=== PATIENT | male | born 1945 | race Caucasian/White ===

== ENCOUNTER 2024-04-27 12:02 | Emergency (ER) | payer MEDICARE, OTHER ==
[2024-04-27] MEDS ORDERED: AMLO1TAB24 (12:05)
[2024-04-27] MEDS ORDERED: ATOR80TA59 (12:05)
[2024-04-27 12:07] VITALS: BP 141/84; TEMP 97.9; O2SAT 98
[2024-04-27] MEDS ORDERED: RABIES IMMUNE GLOBULIN 1500 INTERNATIONAL UNIT/5ML VIAL IM.IMMUN ONE (13:55)
[2024-04-27] MEDS: RABIES IMMUNE GLOBULIN 1500 INTERNATIONAL UNIT/5ML VIAL IM.IMMUN ONE (15:07)
[2024-04-27] MEDS: RABIES VACCINE HUMAN 2.5 INTERNATIONAL UNITS/ML VIAL (IMOVAX) IM ONE (15:08)
== END 2024-04-27 15:20 | disposition home or self-care (01) ==
LOC: M ED 12:02 → MERGE 12:02 → M ED 15:20
DX: Z29.14 Encounter for prophylactic rabies immune globulin (principal); I25.119 Atherosclerotic heart disease of native coronary artery with unspecified angina pectoris; I10 Essential (primary) hypertension; E78.5 Hyperlipidemia, unspecified; Z23 Encounter for immunization; Z79.899 Other long term (current) drug therapy

== ENCOUNTER 2024-04-30 07:00 | Emergency (ER) | payer MEDICARE, OTHER ==
[~2024-04-30] VITALS: Ht 170.2 cm; Wt 77.4 kg
[~2024-04-30 07:00] MED LIST: AMLO1TAB24; ATOR80TA59
[2024-04-30] MEDS: RABIES VACCINE HUMAN 2.5 INTERNATIONAL UNITS/ML VIAL (IMOVAX) IM.IMMUN ONE (07:36)
[2024-04-30 07:40] VITALS: BP 180/74; TEMP 98.1; O2SAT 97
== END 2024-04-30 08:08 | disposition home or self-care (01) ==
LOC: M ED 07:00 → MERGE 07:00 → M ED 08:08
DX: Z29.14 Encounter for prophylactic rabies immune globulin (principal); Z23 Encounter for immunization; I10 Essential (primary) hypertension; Z79.899 Other long term (current) drug therapy

== ENCOUNTER 2024-05-04 07:00 | Emergency (ER) | payer MEDICARE, OTHER ==
[~2024-05-04] VITALS: Ht 170.2 cm; Wt 76.1 kg
[2024-05-04 07:02] VITALS: BP 185/85; TEMP 97.2; O2SAT 96
[2024-05-04] MEDS: RABIES VACCINE 2.5 INTERNATIONAL UNITS/ML VIAL (RABAVERT) IM.IMMUN ONE (08:01)
== END 2024-05-04 08:23 | disposition home or self-care (01) ==
LOC: M ED 07:00
DX: Z20.3 Contact with and (suspected) exposure to rabies (principal); Z23 Encounter for immunization; I10 Essential (primary) hypertension; E78.00 Pure hypercholesterolemia, unspecified; Z95.1 Presence of aortocoronary bypass graft; Z79.899 Other long term (current) drug therapy